=== PATIENT | male | born 1945 | race Caucasian/White ===

== ENCOUNTER 2022-01-29 07:39 | Day surgery (SDC) | payer MEDICARE, MEDICAID ==
[~2022-01-29] VITALS: Ht 165.1 cm; Wt 77.2 kg
[~2022-01-29 07:39] MED LIST: ALBU8HFA IH; AMIO200T68 PO; ASPI-1450 PO; ATOR40TA28 PO; BISA10SU11 PR; CLOP75TA60 PO; DIPH25CA85 PO; HYDR-4072 PO; INSU100V SQ; LEVE250T4 PO; LIDO15CR11 TP; NETA2.5D3 OU; NIFE90TA65 PO; SODIUM CHLORIDE 0.9% 1,000 ML IV ONE; SODIUM CHLORIDE 0.9% 1,000 ML ONE; SUCR500T PO; TIMO5SOL10 OU; VALS160T2 PO
[2022-01-29 08:48] LABS: COVID AG,FIA SOURCE NASAL SWAB
[2022-01-29] MEDS ORDERED: DiphenhydrAMINE HCL 50 MG CAPSULE PO ONE (09:00)
[2022-01-29] MEDS ORDERED: DIAZEPAM 5 MG TABLET PO ONE (09:00)
[2022-01-29] MEDS ORDERED: ASPIRIN 81 MG CHEWABLE TABLET PO ONE (09:00)
[2022-01-29] MEDS ORDERED: DEXTROSE 5%-0.45% SODIUM CHL 1,000 ML IV ONE (09:24)
[2022-01-29 09:36] LABS: GLUCOMETER DEV NAME(LOC) SDS.; GLUCOSE,POINT OF CARE 67 MG/DL (70-110)
[2022-01-29 09:36] LABS: CALCIUM, TOTAL 9.5 mg/dL (8.8-10.5); CREATININE 6.7 mg/dL (0.60-1.30)
[2022-01-29 09:46] LABS: POTASSIUM 5.9 mmol/L (3.5-5.1)
[2022-01-29 09:48] LABS: INR 1.3 (0.9-1.1); PROTHROMBIN TIME 13.3 SEC (9.4-11.6)
[2022-01-29 09:53] LABS: BASOPHILS % (AUTO) 1.1 % (0.0-2.0); EOSINOPHILS % (AUTO) 7.5 % (1.0-6.0); HEMATOCRIT 37.9 % (41-53); HEMOGLOBIN 12.1 g/dL (13.5-17.5); LYMPHOCYTES # (AUTO) 0.9 K/uL (1.0-4.8); LYMPHOCYTES % (AUTO) 26.5 % (22.0-44.0); MEAN CORPUSCULAR HEMOGLOBIN 30.2 pg (26.0-34.0); MEAN CORPUSCULAR HGB CONC 31.9 G/dL (31.0-37.0); MEAN CORPUSCULAR VOLUME 95 fL (80-100); MONOCYTES # (AUTO) 0.5 K/uL (0.1-1.0); MONOCYTES % (AUTO) 15.9 % (2.0-9.0); NEUTROPHILS # (AUTO) 1.6 K/uL (1.8-7.7); RED CELL DISTRIBUTION WIDTH 19.1 % (11.5-14.5)
[2022-01-29 10:18] LABS: PLATELET COUNT (AUTO) 69 K/uL (150-450)
[2022-01-29] MEDS ORDERED: DiphenhydrAMINE HCL 50 MG CAPSULE ONE (10:44)
[2022-01-29] MEDS ORDERED: ASPIRIN 81 MG CHEWABLE TABLET ONE (10:45)
[2022-01-29] MEDS ORDERED: DIAZEPAM 5 MG TABLET ONE (10:45)
[2022-01-29] MEDS ORDERED: LEVE500T20 PO (14:18)
[2022-01-29] MEDS ORDERED: TIMO5DRO21 OU (14:18)
[2022-01-29] MEDS ORDERED: SODIUM BICARBONATE 50 MEQ/50 ML VIAL ONE (15:08)
[2022-01-29] MEDS ORDERED: LIDOCAINE/PF 1% 30 ML VIAL ONE (15:08)
[2022-01-29] MEDS ORDERED: HEPARIN SODIUM 1000 UNITS/NS 1,000 ML ONE (15:09)
[2022-01-29] MEDS ORDERED: IOHEXOL 350 MG/ML 100 ML VIAL ONE (15:09)
[2022-01-29] MEDS ORDERED: IOHEXOL 300 MG/ML 100 ML VIAL ONE (15:10)
[2022-01-29 15:28] VITALS: BP 104/74
[2022-01-29] MEDS ORDERED: MIDAZOLAM HCL 2 MG/2 ML VIAL ONE (15:43)
[2022-01-29] MEDS ORDERED: FentaNYL CITRATE PF 100 MCG/2 ML VIAL ONE (15:43)
[2022-01-29] MEDS ORDERED: IOHEXOL 300 MG/ML 100 ML VIAL IARTER ONE (16:00)
[2022-01-29] MEDS ORDERED: HEPARIN SODIUM 1000 UNITS/NS 1,000 ML IARTER ONE (16:00)
[2022-01-29] MEDS ORDERED: LIDOCAINE 1% 30 ML/SOD BICARB 8.4% 4 ML SQ ONE ×2 (16:00→16:15)
== END 2022-01-29 19:45 | disposition home or self-care (01) ==
LOC: CATHLAB 07:39
PROVIDERS: ATTEND Internal Medicine Interventional Cardiology
DX: R94.39 Abnormal result of other cardiovascular function study (principal); I25.10 Atherosclerotic heart disease of native coronary artery without angina pectoris; I35.0 Nonrheumatic aortic (valve) stenosis; I13.0 Hypertensive heart and chronic kidney disease with heart failure and stage 1 through stage 4 chronic kidney disease, or unspecified chronic kidney disease; N18.9 Chronic kidney disease, unspecified; E66.9 Obesity, unspecified; D64.9 Anemia, unspecified; F17.210 Nicotine dependence, cigarettes, uncomplicated; Z95.0 Presence of cardiac pacemaker; E11.22 Type 2 diabetes mellitus with diabetic chronic kidney disease; I73.9 Peripheral vascular disease, unspecified; E11.51 Type 2 diabetes mellitus with diabetic peripheral angiopathy without gangrene; Z79.01 Long term (current) use of anticoagulants; Z79.899 Other long term (current) drug therapy; Z89.429 Acquired absence of other toe(s), unspecified side; Z98.890 Other specified postprocedural states; Z80.0 Family history of malignant neoplasm of digestive organs
CPT/HCPCS: 93454; 80048; 82962; 85025; 85610; 85730; 36415; 93005; 87426; J1644; J3490 ×2; J7030; Q9967; C9803; J2250; J3010